=== PATIENT | female | born 1955 | race American Indian/Alaskan Native ===

== ENCOUNTER 2021-08-19 16:04 | Observation (INO) | payer OTHER, MEDICARE ==
--- NOTE | 2021-08-19 16:43 | Cat Scan Report ---
CT head/brain wo con INDICATION / CLINICAL INFORMATION: 66 years Female; Stroke symptoms. TECHNIQUE: Routine CT head without contrast. All CT scans at this location are performed using CT dos e reduction for ALARA by means of automated exposure control. COMPARISON: None. FINDINGS: BRAIN / INTRACRANIAL CONTENTS: There is extensive cerebral white matter disease most consistent with microvascular angiopathy. There appear to be old lacunar infarcts within the left basal ganglia. Ther e is mild cerebral atrophy with associated mild prominence of the ventricular system. The motion degr ades the image quality. However, there is no clear CT evidence of acute intracranial hemorrhage or si gnificant mass effect. ORBITS: No significant abnormality of visualized orbits. SINUSES / MASTOIDS: There is focal opacification within the hypoplastic left frontal sinus. CRANIOCERVICAL JUNCTION: There is prominent increased attenuation projected along the visualized post erior odontoid measure approximately 5 mm in greatest AP dimension at. This finding appears to result in milder flattening of the ventral cord and can be seen with prominence of the venous plexus at wit hin this region at. However, there is somewhat more focal component inferiorly and process such as ep idural hematoma cannot be completely excluded particularly if there is any recent history of trauma. ADDITIONAL FINDINGS: None. IMPRESSION: 1. There is extensive microvascular angiopathy and mild cerebral atrophy as described. 2. There is notable increased attenuation along the visualized posterior odontoid which may be seen w ith prominent venous plexus. However, the findings appear to slightly flatten the ventral cord with m ore focal component along the included inferior aspect and process such as epidural hematoma cannot b e completely excluded and correlation would be needed. If clinical questions remain, dedicated imagin g of the cervical spine would be recommended. The study was specified as code stroke and called emergently to Dr. Morin in the ER at 3:35 PM [facility] standard time. Signer Name: Montez Holland MD Signed: 08/19/2021 4:37 PM Workstation Name: [id number]
--- NOTE | 2021-08-19 16:44 | Consultation ---
Medications and Allergies Allergies Allergy/AdvReac Type Severity Reaction Status Date / Time No Known Allergies Allergy Verified 08/19/21 16:08 Physical Examination - Vital Signs Vital Signs: Vital Signs Temp Pulse Resp BP Pulse Ox 98.7 F 72 16 128/72 97 08/19/21 16:07 08/19/21 16:07 08/19/21 16:07 08/19/21 16:07 08/19/21 16:07 Assessment and Plan [facility] Consult Note # Demographics Consult Type: Acute Stroke Level 1 (0-4.5 hrs) Patient Location: Emergency Room First Name: Raimundo Last Name: Carolyn Age: 66 Gender: Female Facility: [facility] Time of Initial Page ( Time): 08/19/2021, 16:07 Time of Return Call ( Time): 08/19/2021, 16:07 # HPI History: 66F at work about 14:00, noted to be confused by co-workers. Blood sugar elevated per EMS. Reported right side sensory change, is lethargic. Denies blood thinner use. Patient is unable to say exactly when symptoms started, says "about 9". # Scores Time of exam and NIHSS ( Time): 08/19/2021, 16:25 Level of Consciousness 1a: [1] = Not alert; but arousable by minor stim LOC Questions 1b: [2] = Answers neither correctly LOC Commands 1c: [0] = Performs both tasks correctly Best Gaze 2: [0] = Normal Visual 3: [0] = No visual loss Facial Palsy 4: [0] = Normal symmetrical movements Motor Arm Left 5a: [0] = No drift Motor Arm Right 5b: [0] = No drift Motor Leg Left 6a: [0] = No drift Motor Leg Right 6b: [0] = No drift Limb Ataxia 7: [0] = Absent Sensory 8: [0] = Normal Best Language 9: [0] = No aphasia Dysarthria 10: [1] = [id number] dysarthria Extinction and Inattention 11: [0] = No abnormality NIHSS Total: 4 # Data Head CT: no bleed per radiologist read # Assessment Impression: Altered Mental Status concern for C-spine abnormlaity per radiology. # Plan Thrombolytic/Intervention: NOT IV Thrombolysis or IA Intervention candidate Thrombolytic Exclusion (< 3 hour window): time of onset unclear Thrombolytic Exclusion: > 4.5 hours Intraarterial Exclusion: pending CTA head/neck. Imaging: (urgency: STAT): CT Angiogram Head and CT Angiogram Neck Additional Recommendations: If there is an epidural abnormality as suspected by radiology, neurosurgery consultation may be required. Disposition: admit # Logistics Telemedicine: Interactive 2 way audio and visual telecommunication technology was utilized during this visit
--- NOTE | 2021-08-19 16:55 | XRay Report ---
CHEST 1 VIEW 08/19/2021 3:49 PM INDICATION / CLINICAL INFORMATION: AMS. COMPARISON: None available. FINDINGS: SUPPORT DEVICES: None. HEART / MEDIASTINUM: No significant abnormality. LUNGS / PLEURA: No significant pulmonary or pleural abnormality. No pneumothorax. ADDITIONAL FINDINGS: No significant additional findings. IMPRESSION: No acute abnormality. Signer Name: James Celis MD Signed: 08/19/2021 4:51 PM Workstation Name: [id number]
[2021-08-19 17:22] LABS: Amphetamine Screen,Urine Negative; Benzodiazepines Screen,Urine Negative; Cannabinoid Screen,Urine Negative; Cocaine Screen,Urine Negative; Methadone Screen,Urine Negative; Opiate Screen,Urine Negative
[2021-08-19 17:26] LABS: Bilirubin,Urine NEG (Negative); Blood,Urine NEG (Negative); Color,Urine Yellow (Yellow); Hyaline Casts,Urine 30 /LPF; Mucus,Urine FEW /HPF; Protein,Urine <15 mg/dL mg/dL (Negative); RBC,Urine < 1.0 /HPF (0.0-6.0); Urobilinogen,Urine < 2.0 mg/dL (<2.0); White Blood Cell Casts,Urine 5 /LPF
[2021-08-19 17:29] LABS: Basophils % (Auto) 0.4 % (0.0-1.8); Eosinophils # (Auto) 0.2 K/mm3 (0.0-0.4); Eosinophils % (Auto) 3.1 % (0.0-4.3); Hematocrit 31.8 % (30.3-42.9); Hemoglobin 11.4 gm/dl (10.1-14.3); Lymphocytes # (Auto) 2.1 K/mm3 (1.2-5.4); Lymphocytes % (Auto) 33.3 % (13.4-35.0); Mean Corpuscular HGB Conc 36 % (30-34); Mean Corpuscular Volume 92 fl (79-97); Monocytes # (Auto) 0.5 K/mm3 (0.0-0.8); Monocytes % (Auto) 7.7 % (0.0-7.3); Platelet Count 261 K/mm3 (140-440); Red Blood Count 3.47 M/mm3 (3.65-5.03); Red Cell Distribution Width 13.6 % (13.2-15.2)
[2021-08-19 17:40] LABS: INR 0.95 (0.87-1.13); Thrombin Time 17.7 Sec. (15.1-19.6)
[2021-08-19 17:53] LABS: Creatine Kinase MB 2.3 ng/mL (0.0-4.0)
[2021-08-19 17:54] LABS: Alanine Aminotransferase 12 units/L (7-56); Albumin 3.8 g/dL (3.9-5); BUN/Creatinine Ratio 15; Blood Urea Nitrogen 17 mg/dL (7-17); Calcium 9.1 mg/dL (8.4-10.2); Hemolysis Index 7
--- NOTE | 2021-08-19 18:07 | Cat Scan Report ---
CT angio neck, CT angio head HISTORY: AMS COMPARISON: CT head from earlier same day TECHNIQUE: CTA of the neck and head is performed after IV contrast. 3-D/MIP reformats were postproces sed. Percentage stenosis is determined by direct quantitative measurements of diseased internal arreola tid artery diameter compared with normal distal internal carotid artery reference segments or by crit eria similar to NASCET where applicable. All CT scans at this location are performed using CT dose re duction for ALARA by means of automated exposure control. FINDINGS: CTA NECK: Aortic arch: No significant abnormality. Cervical vertebral arteries: No occlusion or hemodynamically significant stenosis. Common Carotid arteries: No occlusion or hemodynamically significant stenosis. Internal carotid arteries: No occlusion or hemodynamically significant stenosis. CTA HEAD: Intracranial internal carotid arteries: No occlusion or significant stenosis. Anterior cerebral arteries: No occlusion or significant stenosis. Middle cerebral arteries: No occlusion or significant stenosis. Intracranial vertebral arteries: No occlusion or significant stenosis. Basilar artery: No occlusion or significant stenosis. Posterior cerebral arteries: No occlusion or significant stenosis. No aneurysm. Additional findings: There is increased attenuation in the extra-axial space extending from the infer ior aspect the clivus to C4 in which there is an abrupt transition. This demonstrates no postcontrast enhancement. An engorged epidural venous plexus should enhance avidly. There is mass effect and flat tening the cord with moderate stenosis at C3-C4. No acute cervical spine fracture identified. IMPRESSION: 1. CTA NECK: There is increased attenuation ventrally extending from base the clivus to C3-C4 demonst rates which demonstrates no enhancement. Findings are most consistent with an epidural hematoma with mass effect on the cord at C3-C4 resulting in moderate spinal canal stenosis. No cervical spine fract ure identified. --No occlusion or significant stenosis of the carotid or vertebral arteries in the neck. 2. CTA HEAD: No occlusion or significant stenosis of the major intracranial vasculature. Signer Name: Leandro Mejia MD Signed: 08/19/2021 6:02 PM Workstation Name: [id number]
[2021-08-19] MEDS ORDERED: METOCLOPRAMIDE 10 MG TAB PO PRN (18:48)
[2021-08-19] MEDS ORDERED: MAGNESIUM HYDROXIDE (MOM) ORAL LIQD UDC PO PRN (18:48)
[2021-08-19] MEDS ORDERED: ONDANSETRON 4 MG/2 ML INJ IV PRN (18:48)
[2021-08-19] MEDS ORDERED: PROMETHAZINE 25 MG RECT SUPP PR PRN (18:48)
[2021-08-19] MEDS ORDERED: HYDROmorphone 1 MG/1 ML INJ IV PRN (18:48)
[2021-08-19] MEDS ORDERED: ACETAMINOPHEN 325 MG TAB PO PRN (18:48)
--- NOTE | 2021-08-19 18:53 | Emergency Department Report ---
ED Neuro Deficit HPI - General Chief Complaint: Neuro Symptoms/Deficit Stated Complaint: ams Time Seen by Provider: 08/19/21 16:08 Source: EMS Mode of arrival: Stretcher Limitations: Altered Mental Status, Physical Limitation - History of Present Illness Initial Comments: pt was at work and stopped responding to her colleagues when they call her name, found sleepy drowsy , no falls no injury pt is 66 years old HTn and diabetes, mastectomy from remote Breast Ca , in remission -: Sudden, hour(s) Location: altered Presenting Symptoms: Present: Unable to Speak Clearly, Altered Mental Status History of same: No Place: work Severity: severe Associated Symptoms: denies: denies other symptoms, confusion, chest pain, headaches, loss of appetite, malise, shortness of breath, syncope, weakness - Related Data Home Medications: Home Medications Medication Instructions Recorded Confirmed Last Taken Chlorthalidone [Thalitone] 25 mg PO QDAY 08/19/21 08/19/21 Unknown Duloxetine HCl 20 mg PO QDAY 08/19/21 08/19/21 Unknown Metformin HCl [metFORMIN] 1,000 mg PO BID 08/19/21 08/19/21 Unknown NIFEdipine [Nifedipine ER] 90 mg PO QDAY 08/19/21 08/19/21 Unknown cloNIDine [Catapres] 0.1 mg PO BID 08/19/21 08/19/21 Unknown lisinopriL [Lisinopril] 20 mg PO QDAY 08/19/21 08/19/21 Unknown Allergies/Adverse Reactions: Allergies Allergy/AdvReac Type Severity Reaction Status Date / Time No Known Allergies Allergy Verified 08/19/21 18:50 ED Review of Systems ROS: Stated complaint: ams Other details as noted in HPI Comment: Unobtainable due to pts medical conditions ED Past Medical Hx - Past Medical History Previous Medical History?: Yes Hx Diabetes: Yes Additional medical history: Breast, Lung CA, Lupus - Medications Home Medications: Home Medications Medication Instructions Recorded Confirmed Last Taken Type Chlorthalidone [Thalitone] 25 mg PO QDAY 08/19/21 08/19/21 Unknown History Duloxetine HCl 20 mg PO QDAY 08/19/21 08/19/21 Unknown History Metformin HCl [metFORMIN] 1,000 mg PO BID 08/19/21 08/19/21 Unknown History NIFEdipine [Nifedipine ER] 90 mg PO QDAY 08/19/21 08/19/21 Unknown History cloNIDine [Catapres] 0.1 mg PO BID 08/19/21 08/19/21 Unknown History lisinopriL [Lisinopril] 20 mg PO QDAY 08/19/21 08/19/21 Unknown History ED Neuro Physical Exam - General Limitations: Altered Mental Status, Physical Limitation General appearance: other (awake but not alert ) Suspected Stroke: Yes - Head Head exam: Present: atraumatic - Eye Eye exam: Present: normal appearance Pupils: Present: normal accommodation - ENT ENT exam: Present: normal exam - Neck Neck exam: Present: normal inspection - Respiratory Respiratory exam: Present: normal lung sounds bilaterally - Cardiovascular Cardiovascular Exam: Present: regular rate - GI/Abdominal GI/Abdominal exam: Present: soft. Absent: tenderness, guarding, rebound - Rectal Rectal exam: Present: deferred - NIHSS Assessment Interval: Baseline 1a. Level of Consciousness: arousable/minor stimuli 1b. LOC Questions: answers no questions correctly 1c. LOC Commands: performs tasks correctly 2. Best Gaze: normal 3. Visual: no visual loss 4. Facial Palsy: normal symmetrical movement 5b. Motor Arm Right: no drift 5a. Motor Arm Left: no drift 6a. Motor Leg Left: no drift 6b. Motor Leg Right: no drift 7. Limb Ataxia: absent 8. Sensory: normal 9. Best Language: no aphasia 10. Dysarthria: mild/moderate dysarthria 11. Extinction/Inattention: no abnormality Total Score: 4 Stroke Severity: Minor Stroke - Skin Skin exam: Present: warm, dry ED Course Vital Signs 08/19/21 16:07 Temperature 98.7 F Pulse Rate 72 Respiratory 16 Rate Blood Pressure 128/72 [Left] O2 Sat by Pulse 96 Oximetry - Reevaluation(s) Reevaluation #1: 08/19/21 18:54 stroke alert on arrival , head CT negative for acute lesion , radiologist recommended CTA for possible lesion in the neck, NOT tPA candiate , unknown Last known normal, Reevaluation #2: 08/19/21 18:55 CTA showed lesion suspicious for epidural hemtoma , spoke with dr atkins , neurosurgery , reviewed the finding with him online, doesn;t think it is heamatoma and it is herniated disk, recommend MRI next day and and he will be consulted - Lab Data Result diagrams: 08/19/21 17:14 08/19/21 17:14 Lab Results 08/19/21 08/19/21 08/19/21 Range/Units 17:14 17:14 17:14 WBC 6.4 (4.5-11.0) K/mm3 RBC 3.47 L (3.65-5.03) M/mm3 Hgb 11.4 (10.1-14.3) gm/dl Hct 31.8 (30.3-42.9) % MCV 92 (79-97) fl MCH 33 H (28-32) pg MCHC 36 H (30-34) % RDW 13.6 (13.2-15.2) % Plt Count 261 (140-440) K/mm3 Lymph % (Auto) 33.3 (13.4-35.0) % Steele % (Auto) 7.7 H (0.0-7.3) % Eos % (Auto) 3.1 (0.0-4.3) % Baso % (Auto) 0.4 (0.0-1.8) % Lymph # (Auto) 2.1 (1.2-5.4) K/mm3 [place] # (Auto) 0.5 (0.0-0.8) K/mm3 Eos # (Auto) 0.2 (0.0-0.4) K/mm3 Baso # (Auto) 0.0 (0.0-0.1) K/mm3 Seg Neutrophils % 55.5 (40.0-70.0) % Seg Neutrophils # 3.5 (1.8-7.7) K/mm3 PT 13.7 (12.2-14.9) Sec. INR 0.95 (0.87-1.13) APTT 30.0 (24.2-36.6) Sec. Thrombin Time 17.7 (15.1-19.6) Sec. Sodium 138 (137-145) mmol/L Potassium 3.5 L (3.6-5.0) mmol/L Chloride 98.7 (98-107) mmol/L Carbon Dioxide 26 (22-30) mmol/L Anion Gap 17 mmol/L BUN 17 (7-17) mg/dL Creatinine 1.1 (0.6-1.2) mg/dL Estimated GFR 49 ml/min BUN/Creatinine Ratio 15 % Glucose 101 H (65-100) mg/dL Calcium 9.1 (8.4-10.2) mg/dL Total Bilirubin 0.20 (0.1-1.2) mg/dL AST 12 (5-40) units/L ALT 12 (7-56) units/L Alkaline Phosphatase 60 (35-129) units/L Total Creatine Kinase 81 (30-135) units/L CK-MB (CK-2) Rel Index 2.8 (0-4) Troponin T < 0.010 (0.00-0.029) ng/mL Total Protein 6.2 L (6.3-8.2) g/dL Albumin 3.8 L (3.9-5) g/dL Albumin/Globulin Ratio 1.6 % Urine Color (Yellow) Urine Turbidity (Clear) Urine pH (5.0-7.0) Ur Specific [place] (1.003-1.030) Urine Protein (Negative) mg/dL Urine Glucose (UA) (Negative) mg/dL Urine Ketones (Negative) mg/dL Urine Blood (Negative) Urine Nitrite (Negative) Urine Bilirubin (Negative) Urine Urobilinogen (<2.0) mg/dL Ur Leukocyte Esterase (Negative) Urine WBC (Auto) (0.0-6.0) /HPF Urine RBC (Auto) (0.0-6.0) /HPF U Epithel Cells (Auto) (0-13.0) /HPF Hyaline Casts /LPF WBC Casts /LPF Urine Mucus /HPF Urine Opiates Screen Urine Methadone Screen Ur Barbiturates Screen Ur Phencyclidine Scrn Ur Amphetamines Screen U Benzodiazepines Scrn Urine Cocaine Screen U Marijuana (THC) Screen Drugs of Abuse Note 08/19/21 08/19/21 Range/Units Unknown Unknown WBC (4.5-11.0) K/mm3 RBC (3.65-5.03) M/mm3 Hgb (10.1-14.3) gm/dl Hct (30.3-42.9) % MCV (79-97) fl MCH (28-32) pg MCHC (30-34) % RDW (13.2-15.2) % Plt Count (140-440) K/mm3 Lymph % (Auto) (13.4-35.0) % Steele % (Auto) (0.0-7.3) % Eos % (Auto) (0.0-4.3) % Baso % (Auto) (0.0-1.8) % Lymph # (Auto) (1.2-5.4) K/mm3 Steele # (Auto) (0.0-0.8) K/mm3 Eos # (Auto) (0.0-0.4) K/mm3 Baso # (Auto) (0.0-0.1) K/mm3 Seg Neutrophils % (40.0-70.0) % Seg Neutrophils # (1.8-7.7) K/mm3 PT (12.2-14.9) Sec. INR (0.87-1.13) APTT (24.2-36.6) Sec. Thrombin Time (15.1-19.6) Sec. Sodium (137-145) mmol/L Potassium (3.6-5.0) mmol/L Chloride (98-107) mmol/L Carbon Dioxide (22-30) mmol/L Anion Gap mmol/L BUN (7-17) mg/dL Creatinine (0.6-1.2) mg/dL Estimated GFR ml/min BUN/Creatinine Ratio % Glucose (65-100) mg/dL Calcium (8.4-10.2) mg/dL Total Bilirubin (0.1-1.2) mg/dL AST (5-40) units/L ALT (7-56) units/L Alkaline Phosphatase (35-129) units/L Total Creatine Kinase (30-135) units/L CK-MB (CK-2) Rel Index (0-4) Troponin T (0.00-0.029) ng/mL Total Protein (6.3-8.2) g/dL Albumin (3.9-5) g/dL Albumin/Globulin Ratio % Urine Color Yellow (Yellow) Urine Turbidity Clear (Clear) Urine pH 5.0 (5.0-7.0) Ur Specific [place] 1.016 (1.003-1.030) Urine Protein <15 mg/dl (Negative) mg/dL Urine Glucose (UA) Neg (Negative) mg/dL Urine Ketones Neg (Negative) mg/dL Urine Blood Neg (Negative) Urine Nitrite Neg (Negative) Urine Bilirubin Neg (Negative) Urine Urobilinogen < 2.0 (<2.0) mg/dL Ur Leukocyte Esterase Neg (Negative) Urine WBC (Auto) 3.0 (0.0-6.0) /HPF Urine RBC (Auto) < 1.0 (0.0-6.0) /HPF U Epithel Cells (Auto) 2.0 (0-13.0) /HPF Hyaline Casts 30 /LPF WBC Casts 5 /LPF Urine Mucus Few /HPF Urine Opiates Screen Negative Urine Methadone Screen Negative Ur Barbiturates Screen Negative Ur Phencyclidine Scrn Negative Ur Amphetamines Screen Negative U Benzodiazepines Scrn Negative Urine Cocaine Screen Negative U Marijuana (THC) Screen Negative Drugs of Abuse Note Disclamer - EKG Data -: EKG Interpreted by Me Critical care attestation.: If time is entered above; I have spent that time in minutes in the direct care of this critically ill patient, excluding procedure time. ED Disposition Clinical Impression: Altered mental status Disposition: 09 ADMITTED INPATIENT Is pt being admited?: Yes Does the pt Need Aspirin: Yes Condition: Stable
--- NOTE | 2021-08-19 18:54 | History and Physical Report ---
History of Present Illness Chief complaint: She said she felt weak on her right side and then she stopped talking History of present illness: 66 YO Female with SLE, HTN, DM, Obesity, BrCa, Lung Cancer presents to ED for evaluation. Patient is confused with diminished cognition at the time my evaluation is unable to provide history. 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 As per witnesses the patient was in her usual state of health while at work when she reported "I feel weak on my right side". The patient suddenly began "acting sleepy and would not answer questions." EMS was notified and upon arrival the patient was found to be in distress with a focal neurologic deficit. A code stroke was called and the patient was transported to [facility] for further care and evaluation of the aforementioned symptoms. The patient was seen and evaluated in the emergency department. All lab and imaging studies reviewed. The patient was found to have a focal neurologic deficit consistent with acute CVA, metabolic encephalopathy. Patient admitted to telemetry and initiated on CVA protocol. Patient found to have abnormal cervical spine finding on CT scan. Neurosurgery team consulted in ED. No further history is obtainable. No reports of fever, chills, chest pain, palpitation, productive cough, skin rash, recent ill contacts, trauma, unilateral leg swelling, prolonged travel/immobility, individual/family history of DVT/PE/bleeding/blood clotting disorders, or known exposure to COVID-19. No prior admission for review. All medication listed at time of admission has been reconciled. Advanced care planning conducted in ED. Past History Past Medical History: cancer, diabetes, hypertension, other (See HPI) Past Surgical History: mastectomy Social history: denies: smoking, alcohol abuse, prescription drug abuse Family history: diabetes, hypertension Medications and Allergies Allergies Allergy/AdvReac Type Severity Reaction Status Date / Time No Known Allergies Allergy Verified 08/19/21 18:50 Home Medications Medication Instructions Recorded Confirmed Last Taken Type Chlorthalidone [Thalitone] 25 mg PO QDAY 08/19/21 08/19/21 Unknown History Duloxetine HCl 20 mg PO QDAY 08/19/21 08/19/21 Unknown History Metformin HCl [metFORMIN] 1,000 mg PO BID 08/19/21 08/19/21 Unknown History NIFEdipine [Nifedipine ER] 90 mg PO QDAY 08/19/21 08/19/21 Unknown History cloNIDine [Catapres] 0.1 mg PO BID 08/19/21 08/19/21 Unknown History lisinopriL [Lisinopril] 20 mg PO QDAY 08/19/21 08/19/21 Unknown History Active Meds: Active Medications Chlorthalidone (Chlorthalidone 25 Mg Tab) 25 mg PO QDAY [facility] Clonidine HCl (Clonidine 0.1 Mg Tab) 0.1 mg PO BID RICH Duloxetine HCl (Duloxetine 20 Mg Cap) 20 mg PO QDAY RICH Lisinopril (Lisinopril 20 Mg Tab) 20 mg PO QDAY RICH Nifedipine (Nifedipine Xl 90 Mg Tab) 90 mg PO QDAY [facility] Review of Systems ROS unobtainable: due to mental status Exam - Constitutional Vitals: Temp Pulse Resp BP Pulse Ox 98.7 F 72 16 128/72 96 08/19/21 16:07 08/19/21 16:07 08/19/21 16:07 08/19/21 16:07 08/19/21 16:07 General appearance: Present: mild distress - EENT Eyes: Present: PERRL ENT: clear oral mucosa, hearing decreased - Neck Neck: Present: supple - Respiratory Respiratory effort: normal Respiratory: bilateral: CTA - Cardiovascular Rhythm: regular Heart Sounds: Present: S1 & S2 - Extremities Extremities: pulses symmetrical, No edema Peripheral Pulses: within normal limits - Abdominal General gastrointestinal: Present: soft, non-tender, non-distended, normal bowel sounds Female genitourinary: Present: normal - Integumentary Integumentary: Present: clear, dry - Musculoskeletal Musculoskeletal: right sided weakness - Psychiatric Psychiatric: no appropriate mood/affect, no intact judgment & insight, no memory intact - Neurologic Neurologic: CNII-XII intact, moves all extremities HEART Score - HEART Score Troponin: Troponin T < 0.010 ng/mL (0.00-0.029) 08/19/21 17:14 Results - Labs CBC & Chem 7: 08/19/21 17:14 08/19/21 17:14 Labs: Abnormal lab results 08/19/21 08/19/21 Range/Units 17:14 17:14 RBC 3.47 L (3.65-5.03) M/mm3 MCH 33 H (28-32) pg MCHC 36 H (30-34) % [place] % (Auto) 7.7 H (0.0-7.3) % Potassium 3.5 L (3.6-5.0) mmol/L Glucose 101 H (65-100) mg/dL Total Protein 6.2 L (6.3-8.2) g/dL Albumin 3.8 L (3.9-5) g/dL Assessment and Plan - Patient Problems (1) CVA (cerebral vascular accident) Status: Acute Plan to address problem: CVA protocol: CT scan head, CTA head and neck, antiplatelet therapy, lipid panel, physical therapy consult, Occupational Therapy consulted, speech therapy consulted, telemetry neurology consulted in ED. (2) Acute encephalopathy Status: Acute Plan to address problem: Supportive care, CTA, neuro check, seizure precaution, aspiration precautions, fall precautions. (3) Cervical disc disorder Status: Acute Plan to address problem: Neurosurgery consulted. CT scan cervical spine reviewed. Patient found to have herniated disc as per neurosurgery team. Further care and evaluation as per neurosurgery team. (4) Diabetes Status: Acute Plan to address problem: Consistent carbohydrate diet, insulin protocol, hypoglycemia protocol, Accu-Chek (5) Obesity hypoventilation syndrome Status: Acute Plan to address problem: Balanced diet, increase physical activity at discharge, outpatient pulmonary follow-up for sleep study. (6) Metabolic syndrome Status: Acute Plan to address problem: Balanced diet, increase physical activity at discharge, diabetes control, blood pressure control. (7) SLE (systemic lupus erythematosus) Status: Acute Qualifiers: Systemic lupus erythematosus organ involvement: unspecified Plan to address problem: Supportive care, outpatient rheumatology follow-up. No acute exacerbation at this time. (8) Lung cancer Status: Acute Qualifiers: Lung location: unspecified part of lung Plan to address problem: Supportive care, outpatient oncology follow-up. Patient currently in remission. Chest x-ray. (9) Breast cancer Status: Acute Qualifiers: Laterality: unspecified laterality Plan to address problem: Supportive care, outpatient oncology follow-up. Patient currently in remission. (10) DVT prophylaxis Status: Acute Plan to address problem: SCD to bilateral lower extremities while in bed (11) Advance care planning Status: Acute Plan to address problem: Disease education conducted, care plan discussed, diagnoses discussed, prognosis discussed, patient is full code. +30 minutes.
[2021-08-19] MEDS ORDERED: ASPIRIN 81 MG TAB CHEW PO ONE (18:57)
[2021-08-20] MEDS: cloNIDine 0.1 MG TAB PO SCH ×3 (01:06→21:52)
[2021-08-20 06:03] LABS: Chol/HDL Ratio 3.2 %
[2021-08-20] MEDS: DULoxetine 20 MG CAP PO SCH (10:18)
[2021-08-20] MEDS: ASPIRIN 325 MG TAB PO SCH (10:19)
--- NOTE | 2021-08-20 12:05 | Progress Note ---
Assessment and Plan (1) CVA (cerebral vascular accident) Status: Acute Plan to address problem: CVA protocol: CT scan head, CTA head and neck, antiplatelet therapy, lipid panel, physical therapy consult, Occupational Therapy consulted, speech therapy consulted, telemetry neurology consulted in ED. (2) Acute encephalopathy Status: Acute Plan to address problem: Supportive care, CTA, neuro check, seizure precaution, aspiration precautions, fall precautions. (3) Cervical disc disorder Status: Acute Plan to address problem: Neurosurgery consulted. CT scan cervical spine reviewed. Patient found to have herniated disc as per neurosurgery team. Further care and evaluation as per neurosurgery team. (4) Diabetes Status: Acute Plan to address problem: Consistent carbohydrate diet, insulin protocol, hypoglycemia protocol, Accu-Chek (5) Obesity hypoventilation syndrome Status: Acute Plan to address problem: Balanced diet, increase physical activity at discharge, outpatient pulmonary follow-up for sleep study. (6) Metabolic syndrome Status: Acute Plan to address problem: Balanced diet, increase physical activity at discharge, diabetes control, blood pressure control. (7) SLE (systemic lupus erythematosus) Status: Acute Qualifiers: Systemic lupus erythematosus organ involvement: unspecified Plan to address problem: Supportive care, outpatient rheumatology follow-up. No acute exacerbation at this time. (8) Lung cancer Status: Acute Qualifiers: Lung location: unspecified part of lung Plan to address problem: Supportive care, outpatient oncology follow-up. Patient currently in remission. Chest x-ray. (9) Breast cancer Status: Acute Qualifiers: Laterality: unspecified laterality Plan to address problem: Supportive care, outpatient oncology follow-up. Patient currently in remission. (10) DVT prophylaxis Status: Acute Plan to address problem: SCD to bilateral lower extremities while in bed (11) Advance care planning Status: Acute Plan to address problem: Disease education conducted, care plan discussed, diagnoses discussed, prognosis discussed, patient is full code. +30 minutes. Subjective Date of service: 08/20/21 Objective - Constitutional Vitals: Vital Signs - 12hr 08/20/21 08/20/21 03:44 07:20 Temperature 98.4 F 97.8 F Pulse Rate 71 73 Respiratory 18 16 Rate Blood Pressure 131/61 112/62 O2 Sat by Pulse 94 97 Oximetry - Labs CBC & Chem 7: 08/19/21 17:14 08/19/21 17:14 Labs: Abnormal lab results 08/19/21 08/19/21 08/20/21 Range/Units 17:14 17:14 04:58 RBC 3.47 L (3.65-5.03) M/mm3 MCH 33 H (28-32) pg MCHC 36 H (30-34) % Keith % (Auto) 7.7 H (0.0-7.3) % Potassium 3.5 L (3.6-5.0) mmol/L Glucose 101 H (65-100) mg/dL Total Protein 6.2 L (6.3-8.2) g/dL Albumin 3.8 L (3.9-5) g/dL HDL Cholesterol 35 L (40-59) mg/dL HEART Score - HEART Score Troponin: Troponin T < 0.010 ng/mL (0.00-0.029) 08/19/21 17:14
--- NOTE | 2021-08-20 12:12 | Vascular Lab Report ---
"DUPLEX DOPPLER ULTRASOUND CAROTID, BILATERAL INDICATION / CLINICAL INFORMATION: stroke. COMPARISON: None available. FINDINGS: RIGHT CAROTID: - PLAQUE ESTIMATE (%): < 50% - CCA velocity: 83 cm/sec. - ICA peak systolic velocity: 103 cm/sec. - ICA/CCA PSV Ratio: 1.3 Right Vertebral Artery: Antegrade flow. LEFT CAROTID: - PLAQUE ESTIMATE: < 50% - CCA velocity: 82 cm/sec. - ICA peak systolic velocity: 86 cm/sec. - ICA/CCA PSV Ratio: 1 Left Vertebral Artery: Antegrade flow. IMPRESSION: 1. Right Internal Carotid Artery: Less than 50% diameter stenosis. 2. Left Internal Carotid Artery: Less than 50% diameter stenosis. Velocity criteria are extrapolated from diameter data as defined by the Society of Radiologists in Ul trasound Consensus Conference, Radiology 2003; 229;340-346. Degree of || ICA PSV || Plaque || ICA/CCA Stenosis (%) || (cm/sec) || estimate (%) || PSV Ratio Normal ............. || ...<125........... || ...None......... || ...<2.0 <50................... || ...<125........... || ......<50......... || ...<2.0 50-69................ || ..125-230...... || ......>50......... || 2.0-4.0 >70 but <100... || >230.............. || .......>50........ || ...>4.0 Near occlusion || High/low/none || ...visible....... || variable Total occlusion || ....None........... || ..no lumen... || ....N/A Signer Name: Nima Ramirez MD Signed: 08/20/2021 12:07 PM Workstation Name: [id number]"
[2021-08-20] MEDS: LISINOPRIL 20 MG TAB PO SCH (13:54)
[2021-08-20] MEDS: CHLORTHALIDONE 25 MG TAB PO SCH (13:54)
[2021-08-20] MEDS: NIFEdipine XL 90 MG TAB PO SCH (13:54)
[2021-08-20] MEDS: oxyCODONE /ACETAMINOPHEN 5-325MG TAB PO PRN (15:31)
[2021-08-20] MEDS: GABAPENTIN 100 MG CAP PO SCH ×2 (16:52→21:52)
--- NOTE | 2021-08-21 09:15 | Progress Note ---
Subjective Date of service: 08/21/21 Interval history: NSGY update: imaging studies reviewed. There is anterior epidural hyperdense focus from C2-4. I do not think this is consistent with epidural hematoma. Please obtain STAT MRI cervical spine for further analysis. Please notify me when MRI is obtained. Please call if questions/concerns. Objective - Vital Sign Vital Signs - 12hr 08/20/21 08/21/21 08/21/21 22:00 00:10 04:06 Temperature 98.2 F 98.2 F Pulse Rate 72 76 Respiratory 18 18 Rate Blood Pressure 139/66 149/78 O2 Sat by Pulse 97 96 97 Oximetry 08/21/21 07:48 Temperature 97.9 F Pulse Rate 70 Respiratory 16 Rate Blood Pressure 153/88 O2 Sat by Pulse 95 Oximetry - Laboratory Findings CBC and BMP: 08/19/21 17:14 08/19/21 17:14 Abnormal Lab Findings: Abnormal Labs 08/19/21 08/19/21 08/20/21 17:14 17:14 04:58 RBC 3.47 L MCH 33 H MCHC 36 H [place] % (Auto) 7.7 H Potassium 3.5 L Glucose 101 H Total Protein 6.2 L Albumin 3.8 L HDL Cholesterol 35 L
[2021-08-21] MEDS: CHLORTHALIDONE 25 MG TAB PO SCH (09:37)
[2021-08-21] MEDS: LISINOPRIL 20 MG TAB PO SCH (09:37)
[2021-08-21] MEDS: NIFEdipine XL 90 MG TAB PO SCH (09:37)
[2021-08-21] MEDS: ASPIRIN 325 MG TAB PO SCH (09:37)
[2021-08-21] MEDS: cloNIDine 0.1 MG TAB PO SCH ×2 (09:37→21:49)
[2021-08-21] MEDS: DULoxetine 20 MG CAP PO SCH (09:38)
--- NOTE | 2021-08-21 11:45 | Electrocardiograph Report ---
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
[2021-08-21] MEDS: GABAPENTIN 100 MG CAP PO SCH ×2 (13:09→21:49)
[2021-08-21] MEDS: INSULIN REGULAR, HUMAN 100 UNITS/1 ML SUB-Q SCH ×2 (17:57→21:55)
[2021-08-21] MEDS: oxyCODONE /ACETAMINOPHEN 5-325MG TAB PO PRN (21:49)
--- NOTE | 2021-08-21 22:33 | Progress Note ---
Assessment and Plan (1) CVA (cerebral vascular accident) Status: Acute Plan to address problem: CVA protocol: CT scan head, CTA head and neck, antiplatelet therapy, lipid panel, physical therapy consult, Occupational Therapy consulted, speech therapy consulted, telemetry neurology consulted in ED. (2) Acute encephalopathy Status: Acute Plan to address problem: Supportive care, CTA, neuro check, seizure precaution, aspiration precautions, fall precautions. (3) Cervical disc disorder Status: Acute Plan to address problem: Neurosurgery consulted. CT scan cervical spine reviewed. Patient found to have herniated disc as per neurosurgery team. Further care and evaluation as per neurosurgery team. (4) Diabetes Status: Acute Plan to address problem: Consistent carbohydrate diet, insulin protocol, hypoglycemia protocol, Accu-Chek (5) Obesity hypoventilation syndrome Status: Acute Plan to address problem: Balanced diet, increase physical activity at discharge, outpatient pulmonary follow-up for sleep study. (6) Metabolic syndrome Status: Acute Plan to address problem: Balanced diet, increase physical activity at discharge, diabetes control, blood pressure control. (7) SLE (systemic lupus erythematosus) Status: Acute Qualifiers: Systemic lupus erythematosus organ involvement: unspecified Plan to address problem: Supportive care, outpatient rheumatology follow-up. No acute exacerbation at this time. (8) Lung cancer Status: Acute Qualifiers: Lung location: unspecified part of lung Plan to address problem: Supportive care, outpatient oncology follow-up. Patient currently in remission. Chest x-ray. (9) Breast cancer Status: Acute Qualifiers: Laterality: unspecified laterality Plan to address problem: Supportive care, outpatient oncology follow-up. Patient currently in remission. (10) DVT prophylaxis Status: Acute Plan to address problem: SCD to bilateral lower extremities while in bed (11) Advance care planning Status: Acute Plan to address problem: Disease education conducted, care plan discussed, diagnoses discussed, prognosis discussed, patient is full code. +30 minutes. Subjective Date of service: 08/21/21 Objective - Constitutional Vitals: Vital Signs - 12hr 08/21/21 08/21/21 08/21/21 13:04 16:00 16:54 Temperature 98.0 F 97.7 F Pulse Rate 85 98 H 85 Respiratory 17 16 Rate Blood Pressure 122/68 139/70 Blood Pressure [Left] O2 Sat by Pulse 97 99 Oximetry 08/21/21 08/21/21 08/21/21 20:00 21:49 21:58 Temperature 98.8 F Pulse Rate 92 H 98 H Respiratory 16 Rate Blood Pressure 146/74 Blood Pressure 146/74 [Left] O2 Sat by Pulse 99 98 Oximetry - Labs CBC & Chem 7: 08/19/21 17:14 08/19/21 17:14 Labs: Abnormal lab results 08/21/21 08/21/21 Range/Units 16:56 20:51 POC Glucose 157 H 123 H (70-105) mg/dL HEART Score - HEART Score Troponin: Troponin T < 0.010 ng/mL (0.00-0.029) 08/19/21 17:14
[2021-08-22] MEDS: GABAPENTIN 100 MG CAP PO SCH ×3 (06:00→18:35)
[2021-08-22] MEDS: NIFEdipine XL 90 MG TAB PO SCH (09:53)
[2021-08-22] MEDS: DULoxetine 20 MG CAP PO SCH (09:53)
[2021-08-22] MEDS: cloNIDine 0.1 MG TAB PO SCH (09:53)
[2021-08-22] MEDS: LISINOPRIL 20 MG TAB PO SCH (09:53)
[2021-08-22] MEDS: CHLORTHALIDONE 25 MG TAB PO SCH (09:54)
[2021-08-22] MEDS: ASPIRIN 325 MG TAB PO SCH (09:54)
[2021-08-22] MEDS: INSULIN REGULAR, HUMAN 100 UNITS/1 ML SUB-Q SCH ×3 (09:54→18:30)
[2021-08-22] MEDS ORDERED: LORazepam 2 MG/ML VIAL IV PRN ×2 (10:00)
--- NOTE | 2021-08-22 12:23 | Magnetic Resonance Report ---
MRI CERVICAL SPINE WITHOUT CONTRAST INDICATION / CLINICAL INFORMATION: evaluate epidural hematoma. TECHNIQUE: Multisequence, multiplanar images of the cervical spine were obtained. COMPARISON: CT scan of head, CTA of the head and neck from 08/19/2021 and MR scan of the brain from 08/22/2021 FINDINGS: CRANIOCERVICAL JUNCTION:In the CT scan of the head from 08/19/2021, increased is CT attenuation was see n bordering the odontoid process. In the MRI scan, hypertrophy of the transverse ligament and tectori al membrane seen. This increased T2 and STIR signal intensity below the hypertrophied ligament is pro bably due to decreased venous flow present. In addition, in the CT scan, calcification of the longus coli tendon seen. No inflammatory changes. From the MR signal characteristics, the increased attenuat ion seen in the CT scan bordering the odontoid process appears to be ligamentous hypertrophy. No vent ral subarachnoid space is narrowed, cervicomedullary junction is not compromised. ALIGNMENT: No significant abnormality. VERTEBRAE:Normal marrow signal and vertebral body height for age. VISUALIZED SPINAL CORD: No significant abnormality. [id number] ANALYSIS: C2-3: No significant disc abnormality, spinal canal stenosis, or neural foraminal stenosis. C3-4: Nonlateralizing disc protrusion; neuroforamina are normal C4-5: No significant disc abnormality, spinal canal stenosis, or neural foraminal stenosis. C5-6: No significant disc abnormality, spinal canal stenosis, or neural foraminal stenosis. C6-7: No significant disc abnormality, spinal canal stenosis, or neural foraminal stenosis. C7-T1: No significant disc abnormality, spinal canal stenosis, or neural foraminal stenosis. PARASPINAL SOFT TISSUES: No significant abnormality. ADDITIONAL FINDINGS: None. IMPRESSION: Foramen leg numb: Prominent finding seen in the CT scan appears to be hypertrophy of the transverse ligament and tectorial membrane; in addition, there is also calcification of the longus coli tendon w ithout adjacent inflammatory changes C3-C4: Nonlateralizing midline disc protrusion Signer Name: Demetrice Veliz MD Signed: 08/22/2021 12:19 PM Workstation Name: [id number]
--- NOTE | 2021-08-22 12:27 | Magnetic Resonance Report ---
NONENHANCED MR SCAN OF THE BRAIN: INDICATION / CLINICAL INFORMATION: possible CVA. TECHNIQUE: Multiplanar, multisequence MR images of the brain obtained. COMPARISON: CT scan of the head from 08/19/2021 FINDINGS: BRAIN / INTRACRANIAL CONTENTS: No acute ischemia, acute hemorrhage, mass effect, midline shift, or hy drocephalus. No chronic infarct or atrophy. Multiple lesions with susceptibility changes in both cer ebral hemispheres predominantly in the basal ganglia; if there is history of hypertension, these coul d be due to chronic microbleeds. Confluent periventricular white matter hyperintensities; deep hemisp heric white matter hyperintensities; due to chronic small vessel disease Slightly increased T1 signal intensity in the basal ganglia Chronic EtOH TPN CRANIOCERVICAL JUNCTION: Atrophy of the transverse ligament and tectorial membrane; cervicomedullary junction is not compromised VASCULAR FLOW-VOIDS: No significant abnormality. ORBITS: No significant abnormality of visualized orbits. SINUSES / MASTOIDS: Minimal mucosal thickening in the left mastoid air cells ADDITIONAL FINDINGS: None. IMPRESSION: 1. No acute/subacute ischemia or hemorrhage or acute parenchymal lesion in the brain Signer Name: Demetrice Veliz MD Signed: 08/22/2021 12:23 PM Workstation Name: [id number]
--- NOTE | 2021-08-22 16:01 | Discharge Summary ---
Providers - Providers Date of Admission: 08/19/21 18:49 Date of discharge: 08/22/21 Attending physician: GEORGE HODGE 08/19/21 18:49 Occupational Therapy Evaluate and Treat [CONS] Routine Comment: Reason For Exam: Neuro deficits Physical Therapy Evaluation and Treat [CONS] Routine Comment: Reason For Exam: Neuro deficits 08/19/21 18:52 Speech Therapy Evaluation and Treat [CONS] Routine Reason For Exam: swallow eval 08/19/21 19:06 Consult to Physician [CONS] Stat Comment: Consulting Provider: HELEN MAGANA II Physician Instructions: Reason For Exam: AMS Primary care physician: JHON BRYANT Hospitalization Condition: Stable Disposition: 01 HOME / SELF CARE / HOMELESS Final Discharge Diagnosis (Prints w/discharge instructions): --Dizziness, likely vasovagal. --h/o breast cancer with metastasis to Lung. --Obesity Time spent for discharge: 34 minutes Core Measure Documentation - Palliative Care Palliative Care/ Comfort Measures: Not Applicable - Core Measures Any of the following diagnoses?: none Exam - Constitutional Vitals: Temp Pulse Resp BP Pulse Ox 97.6 F 72 18 140/79 98 08/22/21 09:56 08/22/21 09:56 08/22/21 09:56 08/22/21 09:56 08/22/21 08:20 Plan Activity: advance as tolerated Weight Bearing Status: Weight Bear as Tolerated Diet: low fat, low salt Follow up with: JOHN BRYANT MD [Primary Care Provider] - 7 Days
[2021-08-22 16:56] VITALS: BP 125/72
== END 2021-08-22 20:30 | disposition home or self-care (01) ==
LOC: ED 16:04 → 4A 18:49 → INTOOBSV 18:49
PROVIDERS: ADMIT Internal Medicine; ATTEND Internal Medicine
DX: G93.40 Encephalopathy, unspecified (principal); M50.90 Cervical disc disorder, unspecified, unspecified cervical region; I63.9 Cerebral infarction, unspecified; I10 Essential (primary) hypertension; E11.9 Type 2 diabetes mellitus without complications; E66.2 Morbid (severe) obesity with alveolar hypoventilation; M32.9 Systemic lupus erythematosus, unspecified; E88.81 Metabolic syndrome and other insulin resistance; R29.704 NIHSS score 4; R41.82 Altered mental status, unspecified; R42 Dizziness and giddiness; Z68.32 Body mass index [BMI] 32.0-32.9, adult; Z85.3 Personal history of malignant neoplasm of breast; Z85.118 Personal history of other malignant neoplasm of bronchus and lung; Z90.49 Acquired absence of other specified parts of digestive tract; Z79.899 Other long term (current) drug therapy; Z98.890 Other specified postprocedural states; Z79.84 Long term (current) use of oral hypoglycemic drugs
CPT/HCPCS: 36415; 70450; 70496; 70498; 70551; 71045; 72141; 80053; 80061; 80307; 81001; 82550; 82553; 82962; 84484; 85025; 85610; 85670; 85730; 92526; 92610; 93005; 93010; 93880; 96372; 96374; 96375; 97162; 99285; C8929; G0378; J1170; J2060; Q9967; 93306; J1815